=== PATIENT | female | born 1975 | race Caucasian/White ===

== ENCOUNTER 2019-09-20 14:06 | Emergency (ER) | payer BC ==
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
[2019-09-20 14:54] VITALS: RESP 16
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
[2019-09-20 15:33] VITALS: PULSE 90; TEMP 97.7
[2019-09-20 16:59] VITALS: BP 132/90
== END 2019-09-20 16:58 | disposition home or self-care (01) ==
LOC: EC 14:06
DX: R06.02 Shortness of breath (principal); Z88.1 Allergy status to other antibiotic agents; Z88.0 Allergy status to penicillin
CPT/HCPCS: 71046; 99285